=== PATIENT | female | born 1950 | race Two or more races ===

== ENCOUNTER 2022-11-09 17:53 | Emergency (ER) | payer MEDICARE, MEDICAID ==
[~2022-11-09] VITALS: Ht 162.6 cm; Wt 78.0 kg
[2022-11-09] MEDS ORDERED: ONDANSETRON HCL 4MG/2ML INJ IV STA (18:51)
[2022-11-09] MEDS ORDERED: MORPHINE SULFATE 4 MG/ML CPJ (NOT FOR IM USE) IV STA (18:51)
[2022-11-09] MEDS ORDERED: SODIUM CHLORIDE 0.9% 1,000 ML IV ONE (19:00)
[2022-11-09 20:00] VITALS: BP 131/66
[2022-11-09 20:10] LABS: BASOPHILS % 0.2 % (0.0-2.0); EOSINOPHILS % 0.5 % (0.0-5.0); HEMATOCRIT. 40.6 % (36.0-48.0); HEMOGLOBIN. 13.7 g/dL (12.0-16.0); LYMPHOCYTES % 13.5 % (20.0-50.0); MEAN CORPUSCULAR HEMOGLOBIN 30.5 pg (28.0-32.0); MEAN CORPUSCULAR VOLUME 90.3 fL (81.0-99.0); MEAN PLATELET VOLUME 7.8 fl (7.4-10.4); MONOCYTES % 6.7 % (2.0-8.0); NEUTROPHILS % 79.1 % (40.0-76.0); PLATELET 262 x1000/uL (130-400); RED BLOOD CELL COUNT 4.49 mill/uL (4.2-5.4); RED CELL DISTRIBUTION WIDTH 13.7 % (11.6-14.6)
[2022-11-09 20:20] LABS: CHLORIDE 106 mEq/L (98-107)
[2022-11-09 20:47] LABS: CLARITY URINE CLEAR (CLEAR); COLOR URINE YELLOW (YELLOW); KETONES URINE TRACE (NEGATIVE); LEUKOCYTE ESTERASE URINE TRACE (NEGATIVE); NITRITE URINE NEGATIVE (NEGATIVE); OCCULT BLOOD URINE NEGATIVE (NEGATIVE); PH URINE 8.5 (4.5-8.0); PROTEIN URINE NEGATIVE (NEGATIVE); SPECIFIC GRAVITY URINE 1.007 (1.005-1.030)
[2022-11-09] MEDS ORDERED: ONDANSETRON HCL 4MG/2ML INJ IV NR (21:00)
[2022-11-09] MEDS ORDERED: MORPHINE SULFATE 4 MG/ML CPJ (NOT FOR IM USE) IV NR (21:00)
[2022-11-09] MEDS ORDERED: HYDR-4001 MT (22:05)
[2022-11-09] MEDS ORDERED: IBUP-2028 MT (22:05)
== END 2022-11-10 00:11 | disposition home or self-care (01) ==
LOC: ER 18:39
DX: R10.31 Right lower quadrant pain (principal); E78.00 Pure hypercholesterolemia, unspecified
CPT/HCPCS: 36415; 71045; 74176; 76830; 76856; 80053; 81003; 83690; 84484; 85025; 93005; 99285; J2270; J2405; J7030

== ENCOUNTER 2023-07-28 15:42 | Emergency (ER) | payer MEDICARE, MEDICAID ==
[~2023-07-28] VITALS: Ht 165.1 cm; Wt 72.6 kg
[~2023-07-28 15:42] MED LIST: HYDR-4001 MT; IBUP-2028 MT
[2023-07-28 15:47] VITALS: BP 153/74
[2023-07-28 16:23] LABS: BASOPHILS % 0.3 % (0.0-2.0); EOSINOPHILS % 2.5 % (0.0-5.0); HEMATOCRIT. 39.5 % (36.0-48.0); HEMOGLOBIN. 13.4 g/dL (12.0-16.0); LYMPHOCYTES % 29.3 % (20.0-50.0); MEAN CORPUSCULAR HEMOGLOBIN 30.1 pg (28.0-32.0); MEAN CORPUSCULAR HGB CONC 33.8 g/dL (31.0-37.0); MEAN PLATELET VOLUME 7.5 fl (7.4-10.4); MONOCYTES % 8.7 % (2.0-8.0); NEUTROPHILS % 59.2 % (40.0-76.0); PLATELET 299 x1000/uL (130-400); RED BLOOD CELL COUNT 4.44 mill/uL (4.2-5.4); RED CELL DISTRIBUTION WIDTH 13.8 % (11.6-14.6); WHITE BLOOD COUNT 8.6 x1000/uL (4.5-11.0)
[2023-07-28 16:44] LABS: ALBUMIN 3.8 g/dL (3.4-5.0); CHLORIDE 109 mEq/L (98-107); INDEX HEMOLYSI 1 (1-3); INDEX ICTERIC 1 (1-4); INDEX LIPEMIC 1 (1-3); POTASSIUM 3.7 mEq/L (3.5-5.1); SODIUM 139 mEq/L (136-145)
[2023-07-28 16:50] LABS: CLARITY URINE CLEAR (CLEAR); COLOR URINE YELLOW (YELLOW); GLUCOSE URINE NEGATIVE (NEGATIVE); KETONES URINE NEGATIVE (NEGATIVE); LEUKOCYTE ESTERASE URINE NEGATIVE (NEGATIVE); NITRITE URINE NEGATIVE (NEGATIVE); OCCULT BLOOD URINE NEGATIVE (NEGATIVE); PH URINE 7.5 (4.5-8.0); PROTEIN URINE NEGATIVE (NEGATIVE); SPECIFIC GRAVITY URINE 1.018 (1.005-1.030)
[2023-07-28 16:54] LABS: ALANINE AMINOTRANSFERASE 27 IU/L (13-61); ASPARTATE AMINOTRANSFERASE 21 IU/L (15-37); BILIRUBIN TOTAL 0.4 mg/dL (0.1-1.0); CALCIUM 8.7 mg/dL (8.5-10.1); CARBON DIOXIDE 26 mEq/L (21-32); CREATININE 0.8 mg/dL (0.6-1.3); GLUCOSE 88 mg/dL (70-105); PROTEIN TOTAL 8.2 g/dL (6.0-8.3); UREA NITROGEN BLOOD 13 mg/dL (7-21)
[2023-07-28] MEDS ORDERED: GLYC30DR4 RIGHTEYE (19:57)
[2023-07-28] MEDS ORDERED: MINE3.5O44 RIGHTEYE (19:57)
[2023-07-28] MEDS ORDERED: ACYC200C31 PO (19:57)
[2023-07-28] MEDS ORDERED: P20 PO (19:57)
[2023-07-28] MEDS ORDERED: PREDNISONE 20MG TABLET PO ONE (20:00)
[2023-07-28] MEDS ORDERED: ACYCLOVIR 400 MG TABLET PO ONE (20:00)
[2023-07-28 20:33] VITALS: PULSE 89; RESP 16; TEMP 98.6
== END 2023-07-28 20:33 | disposition home or self-care (01) ==
LOC: ER 15:42
DX: G51.0 Bell's palsy (principal); E78.00 Pure hypercholesterolemia, unspecified
CPT/HCPCS: 99285; 70450; 71045; 80053; 81003; 82962; 85025; 36415; 93005; J7512